=== PATIENT | male | born 1975 | race Caucasian/White ===

== ENCOUNTER 2020-07-12 19:28 | Emergency (ER) | payer MEDICAID ==
[~2020-07-12] VITALS: Ht 182.9 cm; Wt 77.7 kg
[2020-07-12 19:40] VITALS: BP 136/86
--- NOTE | 2020-07-12 21:52 | NUR ---
ATTEMPTED TO HAVE PATIENT SEEN BY PROVIDER. PATIENT IS NOT IN LOBBY AT THIS TIME.
[2020-07-12] MEDS ORDERED: KETOROLAC 30 MG/1 ML IM ONE (22:00)
[2020-07-12] MEDS ORDERED: PLEASE ENTER ALLERGIES MC SCH (22:30)
[2020-07-12] MEDS ORDERED: IBUPROFEN 800 MG TABLET ONE (23:37)
[2020-07-13] MEDS ORDERED: IBUPROFEN 800 MG TABLET PO ONE
== END 2020-07-12 23:40 | disposition home or self-care (01) ==
LOC: ED 22:28
DX: S50.01XA Contusion of right elbow, initial encounter (principal); S60.051A Contusion of right little finger without damage to nail, initial encounter; G89.11 Acute pain due to trauma; F17.210 Nicotine dependence, cigarettes, uncomplicated; X58.XXXA Exposure to other specified factors, initial encounter; Y93.89 Activity, other specified; Y92.098 Other place in other non-institutional residence as the place of occurrence of the external cause; Y99.8 Other external cause status
CPT/HCPCS: 99284